=== PATIENT | male | born 1945 | race Hispanic/Latino ===

== ENCOUNTER 2025-05-13 08:38 | Outpatient (CLI) | payer MEDICARE, OTHER | END 2025-05-13 08:39 | disposition home or self-care (01) | LOC: CSHSLEEP 08:38 | PROVIDERS: ATTEND Otolaryngology Plastic Surgery within the Head & Neck | DX: G47.33 Obstructive sleep apnea (adult) (pediatric) (principal); R53.83 Other fatigue; R06.83 Snoring | CPT/HCPCS: 95810 ==